=== PATIENT | male | born 1970 | race African-American/Black ===

== ENCOUNTER 2021-01-19 04:18 | Inpatient (IN) | payer SELFPAY ==
[2021-01-19] MEDS ORDERED: Cefepime 2 GM VIAL ONE (04:50)
[2021-01-19] MEDS ORDERED: Vancomycin 1.5 GRAM/300 ML BAG 1.5 GM in Premix Bag 1 BAG IVPB SCH (05:00)
[2021-01-19 05:07] LABS: Hemoglobin 10.3 g/dL (14.0-18.0); Mean Corpuscular Hemoglobin 27.9 pg (27.0-31.0); Mean Corpuscular Volume 89.9 fL (78.0-98.0); Mean Platelet Volume 6.2 fL (7.4-10.4); Platelet Count 652 thou/uL (130-400); RBC Distribution Width 12.7 % (11.5-14.5); Red Blood Cell (RBC) Count 3.68 mill/uL (4.70-6.10); White Blood Cell (WBC) Count 49.7 thou/uL (4.8-10.8)
[2021-01-19 05:18] LABS: Band 14 % (5-11); Hypochromia SLIGHT = 6-15 cells (100X) (0-5/hpf); Lymphocytes 8 % (21-51); MDiff Complete? YES; Monocytes 9 % (0-10); Neutrophil 69 % (42-75); Platelet Morphology Comment Appears Increased
[2021-01-19 05:23] LABS: ALT (SGPT) 20 U/L (8-55); AST (SGOT) 30 U/L (5-34); Albumin 2.4 g/dL (3.5-5.0); Alkaline Phosphatase 115 U/L (40-110); Anion Gap 14 mmol/L (10-20); BUN (Urea Nitrogen) 11 mg/dL (8.4-25.7); Bilirubin, Total 0.6 mg/dL (0.2-1.2); Calc. Creatinine Clearance 0 mL/min (70-130); Calcium 8.4 mg/dL (7.8-10.44); Carbon Dioxide 19 mmol/L (22-29); Chloride 92 mmol/L (98-107); Globulin 5.1 g/dL (2.4-3.5); Glucose 110 mg/dL (70-105); Potassium 4.4 mmol/L (3.5-5.1); Protein, Total 7.5 g/dL (6.0-8.3); Sodium 121 mmol/L (136-145)
[2021-01-19 05:46] LABS: Bacteria/HPF None Seen HPF (None Seen); Bilirubin Negative (Negative); Blood, Urine Negative (Negative); Clarity Clear (Clear); Glucose, Urine (Dipstick) Normal (Negative); Ketone, Urine Negative (Negative); Leukocyte 75 Leu/uL (Negative); Nitrite Negative (Negative); Protein, Urine (Dipstick) Negative (Neg-Trace); RBC/HPF 0-3 HPF (0-3); Specific Gravity, Urine 1.017 (1.002-1.036); Squamous Epithelial 0-3 HPF (0-3); Urobilinogen Greater than 12 mg/dL (Less than 2)
[2021-01-19] MEDS ORDERED: Morphine 4 MG/ML VIAL ONE (06:17)
[2021-01-19] MEDS ORDERED: Ondansetron PF 4 MG/2 ML Vial ONE ×2 (06:17→10:14)
[2021-01-19] MEDS ORDERED: Lidocaine 1% w/Epinephrine 1:100K 20 ML VIAL ONE (06:32)
[2021-01-19] MEDS ORDERED: metroNIDAZOLE 500 MG/100 ML BAG ONE (06:57)
[2021-01-19 08:53] LABS: SARS-CoV-2 NAA Rapid Test Not Detected (NotDetected)
[2021-01-19] MEDS ORDERED: Fentanyl 100 MCG/2 ML VIAL ONE ×3 (09:27→12:19)
[2021-01-19] MEDS ORDERED: Ketorolac Tromethamine 30 MG/ML VIAL IVP SCH (09:30)
[2021-01-19] MEDS ORDERED: PROPOFOL 200 MG/20 ML VIAL ONE (10:14)
[2021-01-19] MEDS ORDERED: Lidocaine 1% PF 5 ML VIAL ONE (10:14)
[2021-01-19] MEDS ORDERED: PHENYLEPHRINE-NS 100 MCG/ML 10 ML SYRINGE ONE (10:14)
[2021-01-19] MEDS ORDERED: Dexamethasone 20 MG/5 ML VIAL ONE (10:14)
[2021-01-19] MEDS ORDERED: Iopamidol-370 76% 500 ML 1 ML ONE (10:40)
[2021-01-19] MEDS ORDERED: Bupivacaine 0.25% HCL 30 ML VIAL ONE (11:06)
[2021-01-19] MEDS ORDERED: Lidocaine 1% w/Epinephrine 1:100K 30 ML VIAL ONE (11:06)
[2021-01-19 11:40] LABS: Anion Gap 11 mmol/L (10-20); BUN (Urea Nitrogen) 10 mg/dL (8.4-25.7); Calc. Creatinine Clearance 0 mL/min (70-130); Calcium 8.3 mg/dL (7.8-10.44); Carbon Dioxide 21 mmol/L (22-29); Chloride 101 mmol/L (98-107); Glucose 97 mg/dL (70-105); Potassium 4.2 mmol/L (3.5-5.1); Sodium 129 mmol/L (136-145)
[2021-01-19] MEDS ORDERED: Ondansetron PF 4 MG/2 ML Vial IVP PRN (12:18)
[2021-01-19] MEDS ORDERED: Morphine 2 MG/ML VIAL SLOW IVP PRN (12:18)
[2021-01-19] MEDS ORDERED: Ondansetron ODT 4 MG TAB PO PRN (12:18)
[2021-01-19] MEDS ORDERED: hydrALAZINE 20 MG/ML VIAL SLOW IVP PRN (12:18)
[2021-01-19 17:25] LABS: Anion Gap 12 mmol/L (10-20); BUN (Urea Nitrogen) 10 mg/dL (8.4-25.7); Calc. Creatinine Clearance 0 mL/min (70-130); Calcium 8.3 mg/dL (7.8-10.44); Carbon Dioxide 19 mmol/L (22-29); Chloride 101 mmol/L (98-107); Glucose 145 mg/dL (70-105); Potassium 4.5 mmol/L (3.5-5.1); Sodium 127 mmol/L (136-145)
[2021-01-19] MEDS ORDERED: Dextrose 5% in Water 1,000 ML IV SCH (19:00)
[2021-01-19] MEDS: Sodium Chloride 0.9% 1,000 ML IV SCH ×2 (19:28→19:48)
[2021-01-19] MEDS: Gabapentin 300 MG CAP PO SCH ×2 (19:28→20:26)
[2021-01-19 19:30] VITALS: BMI 22.3
[2021-01-19] MEDS: Cefepime 2 GM in Sodium Chloride 0.9% 100 ML IVPB SCH (20:16)
[2021-01-19] MEDS: Enoxaparin Sodium 40 MG/0.4 ML SYRINGE SC SCH (20:25)
[2021-01-19] MEDS: Famotidine 20 MG TAB PO SCH (20:26)
[2021-01-19] MEDS ORDERED: VANCOMYCIN 1.25 GM/250 ML BAG 1.25 GM in Premix Bag 1 BAG IVPB SCH (21:00)
[2021-01-19] MEDS: Vancomycin 1 GM in Premix Bag 1 BAG IVPB SCH (22:19)
[2021-01-20] MEDS: Sodium Chloride 0.9% 1,000 ML IV SCH ×3 (04:38→23:41)
[2021-01-20] MEDS: Vancomycin 1 GM in Premix Bag 1 BAG IVPB SCH ×3 (05:28→22:51)
[2021-01-20 06:47] LABS: Hemoglobin 7.6 g/dL (14.0-18.0); Mean Corpuscular HGB CONC 32.4 g/dL (32.0-36.0); Mean Corpuscular Hemoglobin 30.1 pg (27.0-31.0); Mean Platelet Volume 6.3 fL (7.4-10.4); Platelet Count 599 thou/uL (130-400); RBC Distribution Width 12.7 % (11.5-14.5); Red Blood Cell (RBC) Count 2.53 mill/uL (4.70-6.10); White Blood Cell (WBC) Count 40.7 thou/uL (4.8-10.8)
[2021-01-20 06:55] LABS: Anion Gap 11 mmol/L (10-20); BUN (Urea Nitrogen) 12 mg/dL (8.4-25.7); Calc. Creatinine Clearance 134 mL/min (70-130); Calcium 8.2 mg/dL (7.8-10.44); Carbon Dioxide 25 mmol/L (22-29); Chloride 101 mmol/L (98-107); Glucose 106 mg/dL (70-105); Potassium 4.1 mmol/L (3.5-5.1); Sodium 133 mmol/L (136-145)
[2021-01-20 08:09] LABS: Band 23 % (5-11); Lymphocytes 4 % (21-51); MDiff Complete? YES; Monocytes 2 % (0-10); Myelocyte 1 % (0-0); Neutrophil 70 % (42-75); Platelet Morphology Comment Appears Increased; Polychromasia SLIGHT = 2-3 cells (100X) (0-2/hpf); Vacuoles SLIGHT
[2021-01-20] MEDS: Famotidine 20 MG TAB PO SCH ×2 (08:17→21:18)
[2021-01-20] MEDS: Gabapentin 300 MG CAP PO SCH ×3 (08:17→21:19)
[2021-01-20] MEDS: Cefepime 2 GM in Sodium Chloride 0.9% 100 ML IVPB SCH ×2 (08:18→21:11)
[2021-01-20] MEDS: Morphine 4 MG/ML VIAL SLOW IVP PRN (09:16)
[2021-01-20] MEDS ORDERED: Iopamidol-370 76% 500 ML 1 ML ONE (11:29)
[2021-01-20 12:15] LABS: Anion Gap 14 mmol/L (10-20); BUN (Urea Nitrogen) 11 mg/dL (8.4-25.7); Calc. Creatinine Clearance 145 mL/min (70-130); Calcium 7.6 mg/dL (7.8-10.44); Carbon Dioxide 21 mmol/L (22-29); Chloride 102 mmol/L (98-107); Glucose 125 mg/dL (70-105); Potassium 4.2 mmol/L (3.5-5.1); Sodium 133 mmol/L (136-145)
[2021-01-20] MEDS: Dextrose 5% in Water 1,000 ML IV SCH (14:41)
[2021-01-20 17:57] LABS: HIV (1/2) Antibody/Antigen Non-Reactive (NonReactive); HIV 1/2 INDEX 0.64 S/CO (<1.00)
[2021-01-20 18:14] LABS: Syphilis Antibody Index 3.54 S/CO (<1.00 Non-Reactive)
[2021-01-20 19:07] LABS: Syphilis Antibody INDETERMINATE (Nonreactive)
[2021-01-20 20:38] LABS: Vancomycin, Trough 15.3 ug/mL
[2021-01-20] MEDS: Enoxaparin Sodium 40 MG/0.4 ML SYRINGE SC SCH (21:11)
[2021-01-20] MEDS: HYDROcodone/Acetaminophen 10/325 mg Tablet PO PRN (21:25)
[2021-01-21] MEDS: Dextrose 5% in Water 1,000 ML IV SCH (01:05)
[2021-01-21] MEDS: Ketorolac Tromethamine 30 MG/ML VIAL IVP PRN ×2 (01:18→11:24)
[2021-01-21] MEDS: Vancomycin 1 GM in Premix Bag 1 BAG IVPB SCH ×3 (06:40→22:34)
[2021-01-21] MEDS: Sodium Chloride 0.9% 1,000 ML IV SCH (07:18)
[2021-01-21] MEDS: Famotidine 20 MG TAB PO SCH ×2 (09:07→20:20)
[2021-01-21] MEDS: Gabapentin 300 MG CAP PO SCH ×3 (09:07→20:19)
[2021-01-21] MEDS: Acetaminophen 500 MG TAB PO PRN (09:07)
[2021-01-21] MEDS: Cefepime 2 GM in Sodium Chloride 0.9% 100 ML IVPB SCH ×2 (11:23→20:18)
[2021-01-21 11:29] LABS: Anion Gap 9 mmol/L (10-20); BUN (Urea Nitrogen) 7 mg/dL (8.4-25.7); Calc. Creatinine Clearance 152 mL/min (70-130); Calcium 7.6 mg/dL (7.8-10.44); Carbon Dioxide 28 mmol/L (22-29); Chloride 100 mmol/L (98-107); Glucose 100 mg/dL (70-105); Potassium 3.9 mmol/L (3.5-5.1); Sodium 133 mmol/L (136-145)
[2021-01-21] MEDS: HYDROcodone/Acetaminophen 10/325 mg Tablet PO PRN (17:06)
[2021-01-21] MEDS: Enoxaparin Sodium 40 MG/0.4 ML SYRINGE SC SCH (20:20)
[2021-01-22] MEDS: HYDROcodone/Acetaminophen 10/325 mg Tablet PO PRN ×2 (00:24→17:32)
[2021-01-22] MEDS: Vancomycin 1 GM in Premix Bag 1 BAG IVPB SCH ×3 (05:15→22:13)
[2021-01-22] MEDS: Gabapentin 300 MG CAP PO SCH ×3 (08:35→22:14)
[2021-01-22] MEDS: Cefepime 2 GM in Sodium Chloride 0.9% 100 ML IVPB SCH (08:35)
[2021-01-22] MEDS: Famotidine 20 MG TAB PO SCH ×2 (08:35→22:14)
[2021-01-22] MEDS ORDERED: Lidocaine 1% w/Epinephrine 1:100K 20 ML VIAL ONE (08:54)
[2021-01-22] MEDS: Morphine 4 MG/ML VIAL SLOW IVP PRN (09:41)
[2021-01-22] MEDS ORDERED: Iopamidol-370 76% 500 ML 1 ML ONE (11:47)
[2021-01-22 15:07] LABS: Hemoglobin 7.2 g/dL (14.0-18.0); Mean Corpuscular HGB CONC 32.1 g/dL (32.0-36.0); Mean Corpuscular Hemoglobin 29.6 pg (27.0-31.0); Mean Corpuscular Volume 92.2 fL (78.0-98.0); Mean Platelet Volume 5.9 fL (7.4-10.4); Platelet Count 603 thou/uL (130-400); RBC Distribution Width 12.9 % (11.5-14.5); Red Blood Cell (RBC) Count 2.42 mill/uL (4.70-6.10); White Blood Cell (WBC) Count 21.3 thou/uL (4.8-10.8)
[2021-01-22 15:27] LABS: Anion Gap 10 mmol/L (10-20); BUN (Urea Nitrogen) 9 mg/dL (8.4-25.7); Calc. Creatinine Clearance 142 mL/min (70-130); Calcium 7.6 mg/dL (7.8-10.44); Carbon Dioxide 27 mmol/L (22-29); Chloride 100 mmol/L (98-107); Glucose 131 mg/dL (70-105); Sodium 133 mmol/L (136-145)
[2021-01-22 15:28] LABS: Band 17 % (5-11); Eosinophils 2 % (0-10); Lymphocytes 12 % (21-51); MDiff Complete? YES; Monocytes 8 % (0-10); Neutrophil 61 % (42-75); Platelet Morphology Comment Appears Increased; Polychromasia SLIGHT = 2-3 cells (100X) (0-2/hpf)
[2021-01-22] MEDS: Ketorolac Tromethamine 30 MG/ML VIAL IVP PRN (22:13)
[2021-01-22] MEDS: Enoxaparin Sodium 40 MG/0.4 ML SYRINGE SC SCH (22:14)
[2021-01-23] MEDS: Cefepime 2 GM in Sodium Chloride 0.9% 100 ML IVPB SCH ×3 (00:07→20:31)
[2021-01-23] MEDS: Vancomycin 1 GM in Premix Bag 1 BAG IVPB SCH ×3 (05:01→20:30)
[2021-01-23] MEDS: Gabapentin 300 MG CAP PO SCH ×3 (10:25→20:30)
[2021-01-23] MEDS: Famotidine 20 MG TAB PO SCH ×2 (10:26→20:30)
[2021-01-23] MEDS ORDERED: Vancomycin 1 GM/200 ML BAG ONE (12:12)
[2021-01-23] MEDS ORDERED: Midazolam HCl 2 mg/2 ml Vial ONE (18:21)
[2021-01-23] MEDS ORDERED: Fentanyl 100 MCG/2 ML VIAL ONE ×3 (18:21→19:45)
[2021-01-23] MEDS ORDERED: Lidocaine 1% PF 5 ML VIAL ONE (18:30)
[2021-01-23] MEDS ORDERED: Ondansetron PF 4 MG/2 ML Vial ONE (18:30)
[2021-01-23] MEDS ORDERED: PHENYLEPHRINE-NS 100 MCG/ML 10 ML SYRINGE ONE (18:30)
[2021-01-23] MEDS ORDERED: PROPOFOL 200 MG/20 ML VIAL ONE (18:30)
[2021-01-23] MEDS ORDERED: Ondansetron HCl/PF 4 MG/2 ML Vial IVP PRN (19:14)
[2021-01-23] MEDS ORDERED: Promethazine HCl 25 MG/ML VIAL IM PRN (19:14)
[2021-01-23] MEDS ORDERED: Promethazine HCl 25 MG/ML VIAL IVPB PRN (19:14)
[2021-01-23] MEDS: Enoxaparin Sodium 40 MG/0.4 ML SYRINGE SC SCH (20:30)
[2021-01-24] MEDS: HYDROcodone/Acetaminophen 10/325 mg Tablet PO PRN ×2 (02:37→14:19)
[2021-01-24] MEDS: Morphine 4 MG/ML VIAL SLOW IVP PRN ×4 (02:38→16:08)
[2021-01-24] MEDS: Vancomycin 1 GM in Premix Bag 1 BAG IVPB SCH ×2 (05:37→13:04)
[2021-01-24] MEDS: Famotidine 20 MG TAB PO SCH ×2 (08:27→21:38)
[2021-01-24] MEDS: Cefepime 2 GM in Sodium Chloride 0.9% 100 ML IVPB SCH (08:27)
[2021-01-24] MEDS: Gabapentin 300 MG CAP PO SCH ×3 (08:27→21:37)
[2021-01-24 15:16] LABS: Cytoplasmic (C-ANCA) <1:20 titer (Neg:<1:20); Perinuclear (P-ANCA) <1:20 titer (Neg:<1:20)
[2021-01-24] MEDS: Lidocaine 4% Topical Sol 50 ML BOT TOP SCH ×2 (16:09→16:10)
[2021-01-24] MEDS: cefTRIAXone\\ROCEPHIN 2 GM in Sodium Chloride 0.9% 100 ML IVPB SCH (17:15)
[2021-01-24] MEDS: Enoxaparin Sodium 40 MG/0.4 ML SYRINGE SC SCH (21:37)
[2021-01-24] MEDS: metroNIDAZOLE 500 MG TAB PO SCH (21:38)
[2021-01-25] MEDS: HYDROcodone/Acetaminophen 10/325 mg Tablet PO PRN ×2 (02:54→15:57)
[2021-01-25 08:13] LABS: #Eosinphils 0.4 thou/uL (0.0-0.7); #Lymphocytes 2.4 thou/uL (1.20-3.40); #Monocytes 1.3 thou/uL (0.11-0.59); #Neutrophils 11.9 thou/uL (1.40-6.50); %Eosinophils 2.6 % (0.0-10.0); %Lymphocytes 14.7 % (21.0-51.0); %Monocytes 8.1 % (0.0-10.0); %Neutrophils 74.5 % (42.0-75.0); Hemoglobin 6.7 g/dL (14.0-18.0); Mean Corpuscular HGB CONC 32.4 g/dL (32.0-36.0); Mean Corpuscular Hemoglobin 30.1 pg (27.0-31.0); Mean Corpuscular Volume 93.1 fL (78.0-98.0); Mean Platelet Volume 5.5 fL (7.4-10.4); Platelet Count 631 thou/uL (130-400); Red Blood Cell (RBC) Count 2.22 mill/uL (4.70-6.10)
[2021-01-25] MEDS: metroNIDAZOLE 500 MG TAB PO SCH ×3 (08:17→20:15)
[2021-01-25] MEDS: Gabapentin 300 MG CAP PO SCH ×3 (08:17→20:14)
[2021-01-25] MEDS: Famotidine 20 MG TAB PO SCH ×2 (08:18→20:14)
[2021-01-25 08:32] LABS: Anion Gap 10 mmol/L (10-20); BUN (Urea Nitrogen) 6 mg/dL (8.4-25.7); CRP (Inflammatory) 8.28 mg/dL (= or < 0.5); Calc. Creatinine Clearance 145 mL/min (70-130); Calcium 7.8 mg/dL (7.8-10.44); Carbon Dioxide 29 mmol/L (22-29); Chloride 102 mmol/L (98-107); Glucose 105 mg/dL (70-105); Potassium 3.7 mmol/L (3.5-5.1); Sodium 137 mmol/L (136-145)
[2021-01-25] MEDS: cefTRIAXone\\ROCEPHIN 2 GM in Sodium Chloride 0.9% 100 ML IVPB SCH (17:55)
[2021-01-25] MEDS: Ferrous Sulfate 325 MG TAB PO SCH (17:56)
[2021-01-25] MEDS: Enoxaparin Sodium 40 MG/0.4 ML SYRINGE SC SCH (20:15)
[2021-01-25 20:52] LABS: Vancomycin, Trough 2.6 ug/mL
[2021-01-26] MEDS: HYDROcodone/Acetaminophen 10/325 mg Tablet PO PRN ×3 (02:36→23:37)
[2021-01-26 05:24] LABS: #Eosinphils 0.3 thou/uL (0.0-0.7); #Lymphocytes 1.7 thou/uL (1.20-3.40); #Monocytes 1.1 thou/uL (0.11-0.59); #Neutrophils 11.8 thou/uL (1.40-6.50); %Basophils 0.2 % (0.0-1.0); %Eosinophils 2.3 % (0.0-10.0); %Lymphocytes 11.4 % (21.0-51.0); %Monocytes 7.3 % (0.0-10.0); %Neutrophils 78.7 % (42.0-75.0); Hemoglobin 6.3 g/dL (14.0-18.0); Mean Corpuscular HGB CONC 31.6 g/dL (32.0-36.0); Mean Corpuscular Hemoglobin 29.7 pg (27.0-31.0); Mean Platelet Volume 5.7 fL (7.4-10.4); Platelet Count 711 thou/uL (130-400); RBC Distribution Width 14.2 % (11.5-14.5); Red Blood Cell (RBC) Count 2.11 mill/uL (4.70-6.10)
[2021-01-26] MEDS: Ferrous Sulfate 325 MG TAB PO SCH ×2 (09:08→17:30)
[2021-01-26] MEDS: Famotidine 20 MG TAB PO SCH ×2 (09:09→22:06)
[2021-01-26] MEDS: Gabapentin 300 MG CAP PO SCH ×3 (09:09→22:06)
[2021-01-26] MEDS: metroNIDAZOLE 500 MG TAB PO SCH ×2 (09:09→15:07)
[2021-01-26] MEDS: Polyethylene Glycol 3350 17 GM Packet PO SCH (09:10)
[2021-01-26] MEDS: cefTRIAXone\\ROCEPHIN 2 GM in Sodium Chloride 0.9% 100 ML IVPB SCH (17:33)
[2021-01-26] MEDS: AMOXicillin 250 MG CAP PO SCH (22:05)
[2021-01-26] MEDS: Enoxaparin Sodium 40 MG/0.4 ML SYRINGE SC SCH (22:06)
[2021-01-27 00:08] LABS: QuantiFERON-TB Gold Plus Negative (Negative)
[2021-01-27 00:34] LABS: SARS-CoV-2 PCR by NAA Not Detected (NotDetected)
[2021-01-27 05:34] LABS: #Eosinphils 0.3 thou/uL (0.0-0.7); #Lymphocytes 2.5 thou/uL (1.20-3.40); #Neutrophils 10.8 thou/uL (1.40-6.50); %Basophils 0.1 % (0.0-1.0); %Lymphocytes 17.1 % (21.0-51.0); %Monocytes 6.7 % (0.0-10.0); %Neutrophils 74.1 % (42.0-75.0); Hemoglobin 8.7 g/dL (14.0-18.0); Mean Corpuscular Hemoglobin 29.5 pg (27.0-31.0); Mean Corpuscular Volume 92.2 fL (78.0-98.0); Mean Platelet Volume 5.5 fL (7.4-10.4); Platelet Count 676 thou/uL (130-400); RBC Distribution Width 14.6 % (11.5-14.5); Red Blood Cell (RBC) Count 2.95 mill/uL (4.70-6.10); White Blood Cell (WBC) Count 14.6 thou/uL (4.8-10.8)
[2021-01-27] MEDS: Famotidine 20 MG TAB PO SCH ×2 (08:14→21:17)
[2021-01-27] MEDS: AMOXicillin 250 MG CAP PO SCH ×2 (08:14→21:16)
[2021-01-27] MEDS: Ferrous Sulfate 325 MG TAB PO SCH ×2 (08:14→16:00)
[2021-01-27] MEDS: Gabapentin 300 MG CAP PO SCH ×3 (08:15→21:16)
[2021-01-27] MEDS: Polyethylene Glycol 3350 17 GM Packet PO SCH (08:16)
[2021-01-27] MEDS: HYDROcodone/Acetaminophen 10/325 mg Tablet PO PRN ×2 (09:50→18:22)
[2021-01-27] MEDS: Morphine 4 MG/ML VIAL SLOW IVP PRN (10:01)
[2021-01-27] MEDS: Enoxaparin Sodium 40 MG/0.4 ML SYRINGE SC SCH (21:17)
[2021-01-28] MEDS: HYDROcodone/Acetaminophen 10/325 mg Tablet PO PRN ×3 (04:10→18:28)
[2021-01-28] MEDS: AMOXicillin 250 MG CAP PO SCH ×2 (08:03→21:10)
[2021-01-28] MEDS: Gabapentin 300 MG CAP PO SCH ×3 (08:04→21:10)
[2021-01-28] MEDS: Ferrous Sulfate 325 MG TAB PO SCH ×2 (08:05→16:34)
[2021-01-28] MEDS: Polyethylene Glycol 3350 17 GM Packet PO SCH (08:05)
[2021-01-28] MEDS: Famotidine 20 MG TAB PO SCH ×2 (08:05→21:11)
[2021-01-28] MEDS: Enoxaparin Sodium 40 MG/0.4 ML SYRINGE SC SCH (21:10)
[2021-01-29] MEDS: HYDROcodone/Acetaminophen 10/325 mg Tablet PO PRN ×3 (02:32→18:49)
[2021-01-29] MEDS: Polyethylene Glycol 3350 17 GM Packet PO SCH (10:03)
[2021-01-29] MEDS: Ferrous Sulfate 325 MG TAB PO SCH ×2 (10:08→18:47)
[2021-01-29] MEDS: Gabapentin 300 MG CAP PO SCH ×3 (10:09→20:22)
[2021-01-29] MEDS: Famotidine 20 MG TAB PO SCH ×2 (10:09→20:21)
[2021-01-29] MEDS: AMOXicillin 250 MG CAP PO SCH ×2 (12:43→20:21)
[2021-01-29] MEDS: Enoxaparin Sodium 40 MG/0.4 ML SYRINGE SC SCH (20:22)
[2021-01-30] MEDS: Acetaminophen 500 MG TAB PO PRN (05:34)
[2021-01-30] MEDS: Famotidine 20 MG TAB PO SCH (09:25)
[2021-01-30] MEDS: Polyethylene Glycol 3350 17 GM Packet PO SCH ×2 (09:25→09:47)
[2021-01-30] MEDS: Ferrous Sulfate 325 MG TAB PO SCH ×2 (09:25→17:29)
[2021-01-30] MEDS: Gabapentin 300 MG CAP PO SCH ×2 (09:26→14:19)
[2021-01-30] MEDS: AMOXicillin 250 MG CAP PO SCH (09:47)
[2021-01-30] MEDS ORDERED: Morphine 4 MG/ML VIAL SLOW IVP PRN (10:31)
[2021-01-30] MEDS ORDERED: Morphine 4 MG/ML VIAL SLOW IVP SCH (10:45)
[2021-01-30 16:00] VITALS: BP 128/80; TEMP 98.7
== END 2021-01-30 18:52 | disposition home or self-care (01) | DRG 854 ==
LOC: ERS 04:18 → SDC/OP 09:20 → SJJU 12:18
PROVIDERS: ADMIT Specialist; ATTEND Specialist
PROC: 0J9P0ZZ Drainage of Left Lower Leg Subcutaneous Tissue and Fascia, Open Approach (ICD-10-PCS; principal; 2021-01-19)
PROC: 0J963ZZ Drainage of Chest Subcutaneous Tissue and Fascia, Percutaneous Approach (ICD-10-PCS; 2021-01-19)
PROC: 0J9M0ZZ Drainage of Left Upper Leg Subcutaneous Tissue and Fascia, Open Approach (ICD-10-PCS; 2021-01-22)
PROC: 0J9M0ZZ Drainage of Left Upper Leg Subcutaneous Tissue and Fascia, Open Approach (ICD-10-PCS; 2021-01-23)
PROC: 30233N1 Transfusion of Nonautologous Red Blood Cells into Peripheral Vein, Percutaneous Approach (ICD-10-PCS; 2021-01-26)
DX: A41.9 Sepsis, unspecified organism (principal); L02.213 Cutaneous abscess of chest wall; E87.1 Hypo-osmolality and hyponatremia; I96 Gangrene, not elsewhere classified; L02.416 Cutaneous abscess of left lower limb; M60.052 Infective myositis, left thigh; M60.062 Infective myositis, left lower leg; M60.08 Infective myositis, other site; Z20.822 Contact with and (suspected) exposure to COVID-19; F12.10 Cannabis abuse, uncomplicated; F17.210 Nicotine dependence, cigarettes, uncomplicated; D63.1 Anemia in chronic kidney disease; N18.2 Chronic kidney disease, stage 2 (mild); I12.9 Hypertensive chronic kidney disease with stage 1 through stage 4 chronic kidney disease, or unspecified chronic kidney disease; B96.89 Other specified bacterial agents as the cause of diseases classified elsewhere; J84.10 Pulmonary fibrosis, unspecified
CPT/HCPCS: 36415; 36430; 71260; 74177; 80048; 80053; 80202; 81003; 81015; 83605; 83735; 85025; 86140; 86256; 86480; 86593; 86780; 86850; 86900; 86901; 87040; 87070; 87076; 87205; 87389; 93005; 96365; 96366; 96367; 96375; J0692; J0696; J1100; J1650; J1885; J2250; J2270; J2405; J2704; J3010; J3370; J3490; J7070; P9016; Q9967; S0020; U0002; U0003; U0005

== ENCOUNTER 2025-02-12 00:53 | Emergency (ER) | payer SELFPAY ==
[2025-02-12] MEDS ORDERED: Ondansetron PF 4 MG/2 ML Vial ONE (01:27)
[2025-02-12] MEDS ORDERED: Dexamethasone 10 MG/ML VIAL ONE (01:27)
[2025-02-12] MEDS ORDERED: Ketorolac Tromethamine 30 MG (1 mL) VIAL ONE (01:28)
[2025-02-12 01:35] LABS: Hematocrit 45.7 % (42.0-52.0); Hemoglobin 15.9 g/dL (14.0-18.0); Mean Corpuscular Hemoglobin 31.6 pg (27.0-31.0); Mean Corpuscular Volume 90.9 fL (78.0-98.0); Platelet Count 256 10x3/uL (130-400); Red Blood Cell (RBC) Count 5.03 mill/uL (4.70-6.10); White Blood Cell (WBC) Count 34.42 10x3/uL (4.8-10.8)
[2025-02-12 01:38] LABS: ALT (SGPT) 15 U/L (Less than 45); AST (SGOT) 33 U/L (11-34); Albumin 3.9 g/dL (3.1-4.5); Alkaline Phosphatase 65 U/L (40-110); Anion Gap 17 mmol/L (10-20); BUN (Urea Nitrogen) 8 mg/dL (8.4-25.7); Bilirubin, Total 1.4 mg/dL (0.3-1.2); Calc. Creatinine Clearance 0 mL/min (70-130); Calcium 10.3 mg/dL (7.8-10.44); Carbon Dioxide 22 mmol/L (22-29); Chloride 98 mmol/L (98-107); Globulin 4.6 g/dL (2.4-3.5); Glucose 130 mg/dL (70-105); Potassium 3.6 mmol/L (3.5-5.1); Sodium 133 mmol/L (136-145)
[2025-02-12 01:46] LABS: Platelet Adequacy Comment Platelets Normal; Smudge Cells 1.0 %
[2025-02-12 02:39] LABS: Bacteria/HPF None Seen HPF (None Seen); CAUTI Indications for Culture Dysuria,urgency,freq; Glucose, Urine (Dipstick) Normal (Negative); Leukocyte Negative Leu/uL (Negative); Protein, Urine (Dipstick) 20 mg/dL (Neg-Trace); WBC/HPF 0-3 HPF (0-3)
[2025-02-12 02:40] LABS: Specific Gravity, Urine Greater than 1.050 (1.002-1.036)
[2025-02-12 02:41] LABS: Urine Culture Reflex No No
== END 2025-02-12 04:20 | disposition short-term general hospital (02) ==
LOC: ERS 00:53
DX: A41.9 Sepsis, unspecified organism (principal); J36 Peritonsillar abscess; F17.210 Nicotine dependence, cigarettes, uncomplicated
CPT/HCPCS: 36415; 70491; 80053; 81001; 83605; 84484; 85025; 87040; 87086; 93005; 94760; 96365; 96375; J0295; J1100; J1885